=== PATIENT | male | born 1990 | race Hispanic/Latino ===

== ENCOUNTER 2018-04-15 18:56 | Emergency (ER) | payer MEDICAID ==
[2018-04-15 19:06] VITALS: TEMP 98.8; O2SAT 97
--- NOTE | 2018-04-15 19:52 | C.PDOC ---
History Of Present Illness 28 year old male with PMhx of PE presents to the ED c/o left calf tenderness for the past week. Patient was diagnosed with PE on 2015, taking Xarelto 20 mg brigitte. However patient states he forgot to take his xarelto 2 weeks prior. Christophe driver states he recently traveled to [facility] in January and [place] in February. Patient denies fever, chills, CP, SOB, palpitations, weakness, numbness. Time Seen by Provider: 04/15/18 19:51 Chief Complaint (Nursing): Lower Extremity Problem/Injury History Per: Patient History/Exam Limitations: no limitations Onset/Duration Of Symptoms: Days Current Symptoms Are (Timing): Still Present Severity: Moderate Pain Scale Rating Of: 4 Recent travel outside of the [place]: Yes ([facility] January) Additional History Per: Patient - Ankle/Foot Description Of Injury: Other Past Medical History Reviewed: Historical Data, Nursing Documentation, Vital Signs Vital Signs: Last Vital Signs Temp 98.8 F 04/15/18 19:01 Pulse 105 H 04/15/18 19:01 Resp 20 04/15/18 19:01 BP 127/81 04/15/18 19:01 Pulse Ox 97 04/15/18 19:01 - Medical History PMH: Deep Vein Thrombosis, Pulmonary Embolism (2016) Surgical History: No Surg Hx Family History: States: Unknown Family Hx - Social History Hx Alcohol Use: Yes Hx Substance Use: No - Immunization History Hx Tetanus Toxoid Vaccination: Yes Hx Influenza Vaccination: No Hx Pneumococcal Vaccination: No Review Of Systems Constitutional: Negative for: Fever, Chills Cardiovascular: Negative for: Chest Pain Respiratory: Negative for: Shortness of Breath Gastrointestinal: Negative for: Nausea, Vomiting Musculoskeletal: Positive for: Leg Pain (leg swelling) Skin: Negative for: Rash Neurological: Negative for: Weakness, Numbness, Headache, Dizziness Physical Exam - Physical Exam Appears: Non-toxic, No Acute Distress Skin: Warm, Dry Head: Normacephalic Eye(s): bilateral: Normal Inspection Nose: Normal Oral Mucosa: Moist Neck: Supple Chest: Symmetrical Cardiovascular: Rhythm Regular Respiratory: No Rales, No Rhonchi, No Wheezing Gastrointestinal/Abdominal: Soft, No Tenderness, No Guarding, No Rebound Back: Normal Inspection Extremity: Calf Tenderness (left), Capillary Refill (< 2 seconds), Swelling (left calf, left ankle) Extremity: Bilateral: Atraumatic, Normal ROM Pulses: Left Dorsalis Pedis: Normal, Right Dorsalis Pedis: Normal Neurological/Psych: Oriented x3, Normal Speech, Normal Cognition Gait: Steady ED Course And Treatment - Laboratory Results Result Diagrams: 04/15/18 20:24 04/15/18 20:24 ECG: Interpreted By Me, Viewed By Me ECG Rhythm: Sinus Rhythm (71), Nonspecific Changes O2 Sat by Pulse Oximetry: 97 (ON RA) Pulse Ox Interpretation: Normal Progress Note: Plan: - ABG. - EKG. - Labs. - Blood culture. - Ua. 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 No CTA or lovenox because he's not short of breath Disposition Counseled Patient/Family Regarding: Studies Performed, Diagnosis, Need For Followup - Disposition Disposition: HOME/ ROUTINE Disposition Time: 19:51 Condition: FAIR Additional Instructions: Please follow up with your feather trimmer as per the phone conversation. Please return if you have shortness of breath, chest pain, palpitations or just not feeling well Instructions: Deep Vein Thrombosis (Blood Clots in the Legs) (DC) Forms: [employer] ([place]) - Clinical Impression Clinical Impression: Deep venous thrombosis of lower extremity - Scribe Statement The provider has reviewed the documentation as recorded by the Scribe Jona Fagan All medical record entries made by the Scribe were at my direction and personally dictated by me. I have reviewed the chart and agree that the record accurately reflects my personal performance of the history, physical exam, medical decision making, and the department course for this patient. I have also personally directed, reviewed, and agree with the discharge instructions and disposition.
[2018-04-15 20:27] LABS: BASO # 0.1 K/uL (0.0-0.2); BASO % 0.8 % (0.0-2.0); EOS # 0.2 K/uL (0.0-0.7); EOS % 2.5 % (0.0-4.0); HEMOGLOBIN 15.3 g/dL (12.0-18.0); LYMPH # 1.7 K/uL (1.0-4.3); LYMPH % 21.3 % (20.0-40.0); MEAN CELL VOLUME 81.7 fL (80.0-94.0); MEAN CORPUSCULAR HEMOGLOBIN 28.6 pg (27.0-31.0); MEAN PLATELET VOLUME 7.1 fL (7.2-11.7); MONO # 0.6 K/uL (0.0-0.8); MONO % 6.8 % (0.0-10.0); NEUT # 5.6 K/uL (1.8-7.0); NEUT % 68.6 % (50.0-75.0); RBC 5.37 Mil/uL (4.40-5.90); WHITE BLOOD COUNT 8.2 K/uL (4.8-10.8)
[2018-04-15 20:40] LABS: INR 1.4; PROTHROMBIN TIME 15.6 SECONDS (9.7-12.2)
[2018-04-15 20:49] LABS: ALB/GLOB RATIO 1.3 (1.0-2.1); ALBUMIN 4.6 g/dL (3.5-5.0); ALT/SGPT 19 U/L (21-72); AST/SGOT 34 U/L (17-59); BLOOD UREA NITROGEN 15 mg/dL (9-20); CALCIUM 8.7 mg/dl (8.6-10.4); GFR NON-AFRICAN AMERICAN > 60
[2018-04-15] MEDS ORDERED: Enoxaparin 40 mg Syringe SC STA (22:06)
[2018-04-15] MEDS ORDERED: Iohexol 350mg/ml 100 ML ONE (22:33)
[2018-04-15] MEDS ORDERED: Enoxaparin 30 mg Syringe ONE (22:41)
[2018-04-15] MEDS ORDERED: Enoxaparin 60 mg Syringe ONE (22:41)
[2018-04-15 22:52] VITALS: BP 120/80; PULSE 85; RESP 14
--- NOTE | 2018-04-16 19:48 | CARD ---
APPROVED REPORT Date of service: 04/15/2018 EKG Measurement Heart [id number] <Conclusion> Normal sinus rhythm ST elevation, probably due to early repolarization Borderline ECG
== END 2018-04-15 22:53 | disposition home or self-care (01) ==
LOC: C.ER 18:56
DX: I82.402 Acute embolism and thrombosis of unspecified deep veins of left lower extremity (principal)